=== PATIENT | female | born 1950 | race Caucasian/White ===

== ENCOUNTER → 2017-11-07 | Outpatient (CLI) | payer MEDICARE, MEDICAID | END | disposition home or self-care (01) | LOC: CFH 10:29 | PROVIDERS: ATTEND Family Medicine | DX: Z12.31 Encounter for screening mammogram for malignant neoplasm of breast (principal) | CPT/HCPCS: 77063; 77067 ==

== ENCOUNTER → 2018-07-03 | Outpatient (CLI) | payer MEDICARE, MEDICAID | END | disposition home or self-care (01) | LOC: EDSTATUS 06-26 09:15 → CFH 08:09 | PROVIDERS: ATTEND Family Medicine | DX: E04.2 Nontoxic multinodular goiter (principal) | CPT/HCPCS: 76536 ==

== ENCOUNTER → 2018-10-05 | Outpatient (CLI) | payer MEDICARE, MEDICAID ==
[~2018-10-05] MED LIST: AMLO5TAB4 PO; ATOR10TA PO; CYCL5TAB PO; DULO60CA7 PO; ESTR0.5T3 PO; HYDR-3653 PO; LORA1TAB PO; LOSA1TAB25 PO; MELO15TA6 PO
[2018-10-05 11:31] LABS: ALANINE AMINOTRANSFERASE 36 U/L (12-78); ALBUMIN 3.7 g/dL (3.4-5.0); ANION GAP 5 mmol/L (5-15); CALCIUM 8.8 mg/dL (8.5-10.1); CHLORIDE 106 mmol/L (98-107)
[2018-10-05 11:34] LABS: ALKALINE PHOSPHATASE 76 U/L (45-117); BILIRUBIN,TOTAL 0.7 mg/dL (0.2-1.0); CREATININE 0.74 mg/dL (0.55-1.02); TOTAL PROTEIN 7.3 g/dL (6.4-8.2)
== END | disposition home or self-care (01) ==
LOC: STAR 10:25
PROVIDERS: ATTEND Obstetrics & Gynecology Female Pelvic Medicine and Reconstructive Surgery
DX: Z01.818 Encounter for other preprocedural examination (principal); N81.10 Cystocele, unspecified; N39.3 Stress incontinence (female) (male)
CPT/HCPCS: 36415; 80053; 93005

== ENCOUNTER 2018-10-09 08:29 | Day surgery (SDC) | payer MEDICARE, MEDICAID ==
[~2018-10-09] VITALS: Ht 167.6 cm; Wt 76.0 kg
[~2018-10-09 08:29] MED LIST changes: +BUPIVACAINE/PF 0.25% ONE; +EPINEPHRINE 1 MG/ML, 1ML ONE; +NEOMY/POLYMYXIN B GU IRR. 1 ML ONE
[2018-10-09] MEDS ORDERED: LACTATED RINGERS 1,000 ML IV SCH (08:57)
[2018-10-09] MEDS ORDERED: DIAZEPAM 5 MG TABLET PO ONE (09:00)
[2018-10-09] MEDS ORDERED: SCOPOLAMINE PATCH, 1.5MG PATCH.TD72 TD ONE (09:00)
[2018-10-09] MEDS ORDERED: ACETAMINOPHEN 500 MG TABLET PO ONE (09:00)
[2018-10-09 09:02] VITALS: BP 151/92
[2018-10-09] MEDS ORDERED: LIDOCAINE-MPF 2% ,5ML ONE (10:49)
[2018-10-09] MEDS ORDERED: PROPOFOL 10 MG/ML, 20ML ONE (10:49)
[2018-10-09] MEDS ORDERED: FENTANYL PF 100 MCG/2ML ONE ×2 (10:49→12:06)
[2018-10-09] MEDS ORDERED: MIDAZOLAM 1 MG/ML, 2ML ONE (10:49)
[2018-10-09] MEDS ORDERED: DEXAMETHASONE 4 MG/ML, 1ML ONE ×2 (11:05→11:11)
[2018-10-09] MEDS ORDERED: ONDANSETRON 2MG/ML, 2ML ONE ×2 (11:05→11:11)
[2018-10-09] MEDS ORDERED: CEFAZOLIN 1,000 MG ONE ×2 (11:11)
[2018-10-09] MEDS ORDERED: OXYcodone 5 MG/5 ML ORAL.SOL UDC PO PRN (11:30)
[2018-10-09] MEDS ORDERED: hydrALAzine 20 MG/ML, 1ML IV PRN (11:30)
[2018-10-09] MEDS ORDERED: DIAZEPAM 5 MG/ML, 2ML IVPush PRN (11:30)
[2018-10-09] MEDS ORDERED: EPHEDRINE 50 MG/ML, 1ML IVPush PRN (11:30)
[2018-10-09] MEDS ORDERED: MORPHINE SULFATE 4 MG/ML, 1ML IVPush PRN (11:30)
[2018-10-09] MEDS ORDERED: ONDANSETRON 2MG/ML, 2ML IV PRN (11:30)
[2018-10-09] MEDS ORDERED: HALOPERIDOL 5 MG/ML IV PRN (11:30)
[2018-10-09] MEDS ORDERED: HYDROmorphone 2 MG/ML, 1ML IVPush PRN (11:30)
[2018-10-09] MEDS ORDERED: PROMETHAZINE 25 MG/ML, 1ML IV PRN (11:30)
[2018-10-09] MEDS ORDERED: MIDAZOLAM 1 MG/ML, 2ML IV PRN (11:30)
[2018-10-09] MEDS ORDERED: ONDANSETRON ODT 8 MG PO PRN (11:30)
[2018-10-09] MEDS ORDERED: ALBUTEROL SULFATE 2.5 MG/3 ML NPPB PRN (11:30)
[2018-10-09] MEDS ORDERED: MEPERIDINE/PF 25MG/0.5ML IVPush PRN (11:30)
[2018-10-09] MEDS ORDERED: LABETALOL 5MG/ML, 20ML IV PRN (11:30)
[2018-10-09] MEDS ORDERED: PROMETHAZINE 12.5 MG SUPP PR PRN (11:30)
[2018-10-09] MEDS ORDERED: OXYcodone 5 MG/5 ML ORAL.SOL UDC ONE (12:06)
[2018-10-09] MEDS: FENTANYL PF 100 MCG/2ML IV PRN ×2 (12:12→12:32)
[2018-10-09] MEDS ORDERED: KETOROLAC 30 MG/1 ML ONE (12:18)
[2018-10-09] MEDS ORDERED: KETOROLAC 30 MG/1 ML IVPush ONE (12:30)
[2018-10-09] MEDS ORDERED: DIPHENHYDRAMINE 25 MG CAPSULE PO ONE (13:41)
== END 2018-10-09 15:15 | disposition home or self-care (01) ==
LOC: OUT 08:29
PROVIDERS: ATTEND Obstetrics & Gynecology Female Pelvic Medicine and Reconstructive Surgery
DX: N81.89 Other female genital prolapse (principal); N39.46 Mixed incontinence; N32.81 Overactive bladder; E78.00 Pure hypercholesterolemia, unspecified; F41.9 Anxiety disorder, unspecified; I10 Essential (primary) hypertension; Z98.890 Other specified postprocedural states; Z90.710 Acquired absence of both cervix and uterus; Z90.722 Acquired absence of ovaries, bilateral
CPT/HCPCS: 57265; 57282; 57288; C1771; J0171; J0690; J1100; J1885; J2250; J2405; J2704; J3010; J3490; J7120; Q0163

== ENCOUNTER 2020-03-21 13:54 | Emergency (ER) | payer MEDICARE, MEDICAID ==
[~2020-03-21] VITALS: Ht 167.6 cm; Wt 74.0 kg
[~2020-03-21 13:54] MED LIST changes: -BUPIVACAINE/PF 0.25% ONE; -EPINEPHRINE 1 MG/ML, 1ML ONE; -NEOMY/POLYMYXIN B GU IRR. 1 ML ONE
--- NOTE | 2020-03-21 14:43 | NUR ---
THIS IS A 69 YO F W/ C/O INTERMITTENT DIZZINESS/DIAPHORESIS X1 WEEK. PT DENIES SYMPTOMS CURRENTLY. PT RESTING ON [employer] W/ CALL LIGHT IN REACH, CONNECTED TO ALL MONITORING, BP IMPROVED FROM TRIAGE, OTHER VS WDL. PT DENIES FURTHER NEEDS AT THIS TIME. LAB IN ROOM.
[2020-03-21 14:54] LABS: BASOPHILS # (AUTO) 0.05 x10^3/uL (0-0.1); BASOPHILS % (AUTO) 1 % (0-1); EOSINOPHILS # (AUTO) 0.15 x10^3/uL (0-0.4); EOSINOPHILS % (AUTO) 2 % (1-7); LYMPHOCYTES # (AUTO) 1.61 x10^3/uL (1-3.4); LYMPHOCYTES % (AUTO) 26 % (22-44); MD NO; MEAN CORPUSCULAR HEMOGLOBIN 29.6 pg (27.0-34.8); MEAN CORPUSCULAR HGB CONC 32.3 g/dL (32.4-35.8); MEAN PLATELET VOLUME 8.4 fL (7.4-10.4); MONOCYTES % (AUTO) 8 % (2-9); NEUTROPHILS # (AUTO) 3.93 x10^3/uL (1.8-6.8); NEUTROPHILS % (AUTO) 63 % (42-75); PLATELET COUNT 213 x10^3/uL (130-400); RED CELL DISTRIBUTION WIDTH 14.3 % (9.6-15.2)
[2020-03-21 15:05] LABS: ALBUMIN 3.9 g/dL (3.4-5.0); ANION GAP 4 mmol/L (5-15); CHLORIDE 107 mmol/L (98-107)
[2020-03-21 15:18] LABS: ALANINE AMINOTRANSFERASE 28 U/L (12-78); ALKALINE PHOSPHATASE 75 U/L (45-117); BILIRUBIN,TOTAL 0.8 mg/dL (0.2-1.0); CREATININE 0.74 mg/dL (0.55-1.02)
--- NOTE | 2020-03-21 15:32 | NUR ---
TASK RN: PT RESTING IN [facility] AT THIS TIME; NADN. PT DENIES ANY NEEDS AT THIS TIME.
[2020-03-21 15:37] LABS: CALCIUM 9.1 mg/dL (8.5-10.1)
[2020-03-21 16:14] VITALS: BP 160/83
--- NOTE | 2020-03-21 16:47 | NUR ---
IN ROOM FOR RECHECK.
== END 2020-03-21 17:09 | disposition home or self-care (01) ==
LOC: ED 17:00
DX: I10 Essential (primary) hypertension (principal); R11.0 Nausea; J00 Acute nasopharyngitis [common cold]; R94.31 Abnormal electrocardiogram [ECG] [EKG]
CPT/HCPCS: 36415; 71045; 80053; 83735; 84443; 85025; 93005; 99285

== ENCOUNTER → 2020-04-25 | Outpatient (CLI) | payer MEDICARE, MEDICAID | END | disposition home or self-care (01) | LOC: RAD 06:46 | PROVIDERS: ATTEND Internal Medicine Cardiovascular Disease | DX: I08.8 Other rheumatic multiple valve diseases (principal); I11.9 Hypertensive heart disease without heart failure; R42 Dizziness and giddiness; N28.0 Ischemia and infarction of kidney; E78.00 Pure hypercholesterolemia, unspecified; R06.02 Shortness of breath | CPT/HCPCS: 78452; 93017; 93306; 93356; 93975; A9502 ==